=== PATIENT | female | born 1970 | race African-American/Black ===

== ENCOUNTER 2019-07-24 11:57 | Inpatient (IN) | payer OTHER ==
--- NOTE | 2019-07-24 12:13 | BHS.RME ---
Substance Use & Tx History - Substance Use History Opiates (Heroin) Substance amount: 4 bundles Frequency of use: Daily Substance route: Inhalation (ex: sniffing or snorting) Date of Last Use: 07/24/19 (4am) Cocaine (Crack) Substance amount: $100 Frequency of use: Daily Substance route: Smoking Date of Last Use: 07/24/19 (4am) Alcohol Substance amount: 2 6 packs Frequency of use: Daily Substance route: Oral Date of Last Use: 07/24/19 (4am) - Last Treatment Date of last treatment: none Physical/Psych/Mental Status - Behavior General Behavior: Decreased activity Eye Contact: Decreased - Cooperativeness Cooperativeness: Cooperative - Thinking Thought Processes: Tight, Logical, Tangential - Physical Health Problems Is patient presently having any pain?: No Does patient presently have any injuries (include location): No Does patient currently have a fever: No Is patient : No COWS - Scale Resting Pulse: 1= [place] 81-100 Sweatin= Chills/Flushing Restless Observation: 3= Extraneous Movement Pupil Size: 0= Normal to Room Light Bone or Joint Aches: 1= Mild Discomfort Runny Nose/ Eye Tearin= Nasal Congestion GI Upset > 30mins: 1= Stomach Cramp Tremor Observation: 1= Tremor [place], Not Seen Yawning Observation: 1= 1-2x During Session Anxiety or Irritability: 1=Feels Anxious/Irritable Goose Flesh Skin: 3=Piloerection COWS Score: 14 CIWA Nausea/Vomitin Muscle Tremors: 1-None Visible, but [place] Anxiety: 3 Agitation: 3 Paroxysmal Sweats: 1-Minimal Palms Moist Orientation: 1-Uncertain about Date Tacttile Disturbances: 2-Mild Itch/Numbness/Burn Auditory Disturbances: 0-None Visual Disturbances: 0-None Headache: 0-None Present CIWA-Ar Total Score: 13
--- NOTE | 2019-07-24 13:18 | HP ---
COWS - Scale Resting Pulse: 1= [place] 81-100 Sweatin= Chills/Flushing Restless Observation: 3= Extraneous Movement Pupil Size: 0= Normal to Room Light Bone or Joint Aches: 1= Mild Discomfort Runny Nose/ Eye Tearin= Nasal Congestion GI Upset > 30mins: 1= Stomach Cramp Tremor Observation: 1= Tremor [place], Not Seen Yawning Observation: 1= 1-2x During Session Anxiety or Irritability: 1=Feels Anxious/Irritable Goose Flesh Skin: 3=Piloerection COWS Score: 14 CIWA Score Nausea/Vomitin Muscle Tremors: 1-None Visible, but [place] Anxiety: 3 Agitation: 3 Paroxysmal Sweats: 1-Minimal Palms Moist Orientation: 1-Uncertain about Date Tacttile Disturbances: 2-Mild Itch/Numbness/Burn Auditory Disturbances: 0-None Visual Disturbances: 0-None Headache: 0-None Present CIWA-Ar Total Score: 13 - Admission Criteria OASAS Guidelines: Admission for Medically Managed Detox: Requires at least one of the followin. CIWA greater than 12 2. Seizures within the past 24 hours 3. Delirium tremens within the past 24 hours 4. Hallucinations within the past 24 hours 5. Acute intervention needed for co occurring medical disorder 6. Acute intervention needed for co occurring psychiatric disorder 7. Severe withdrawal that cannot be handled at a lower level of care (continued vomiting, continued diarrhea, abnormal vital signs) requiring intravenous medication and/or fluids 8. Admitting History and Physical - Admission Chief Complaint: " I want to be here because I am tired and drunk and I want to better my life." History of Present Illness: 48 year old female iwth history of alcohol dependence and heroin dependence with withdrawals and crack/cocaine use disorder. She is new to [facility]. She's had no recent admissions to detox. She had an overdose 0n 07/23/19. She blacked out 2 days ago as well. She is domiciled in an SRO but has easy accessibility to multiple drugs. Her environment for recovery is therefore very poor. PMH: HIV+ disease and last taken 1 week ago. HTN, Stroke 5 years ago. Asthma , COPD Psurg: Left food surgery, bunionectomy Heroin: 4 bundles heroin daily, [place]., started 1 year ago and last used today at 4AM. Head OD 07/23/19, brought back by street friend. Crack: $100 daily smoking, started age 16 and last used 07/24/19 at 4AM Alcohol: 2 6 pack beers daily, started age 16 and last used 07/24/19 , blacked out 2 days ago, denies seizures. She is seeking detox due to her recent episodes of black out and near overdose. She has poor recovery environment and poor support systems in place for recovery. 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 Cardiovascular: Yes: HTN Infectious Disease: Yes: HIV Psych: Yes: Depression, Schizophrenia - Past Surgical History Additional Past Surgical History: bunionectomy - Advance Directives Advance Directives: No: Living Will, Health Care Proxy, DNR - Smoking History Smoking history: Current every day smoker Have you smoked in the past 12 months: Yes Aproximately how many cigarettes per day: 20 - Alcohol/Substance Use Hx Alcohol Use: Yes (2 six packs per day) History of Substance Use: reports: Cocaine, Heroin Date of Last Use: 07/24/19 - Social History Usual Living Arrangement: Yes: Alone Do you think of yourself as: Straight/Heterosexual ADL: Independent 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 Loss EENT: reports: No Symptoms Reported Respiratory: reports: No Symptoms reported Cardiac: reports: No Symptoms Reported GI: reports: No Symptoms Reported : reports: No Symptoms Reported Musculoskeletal: reports: No Symptoms Reported Integumentary: reports: No Symptoms Reported Neuro: reports: No Symptoms reported Endocrine: reports: No Symptoms Reported Hematology: reports: No Symptoms Reported Psychiatric: reports: Judgement Intact, Orientated x3, Agitated, Anxious Other Systems: Reviewed and Negative Patient History - Patient Medical History Hx Anemia: No Hx Asthma: Yes Hx Chronic Obstructive Pulmonary Disease (COPD): Yes Hx Cancer: No Hx Cardiac Disorders: No Hx Congestive Heart Failure: No Hx Hypertension: Yes Hx Hypercholesterolemia: No Hx Pacemaker: No HX Cerebrovascular Accident: No Hx Seizures: No Hx Dementia: No Hx Diabetes: No Hx Gastrointestinal Disorders: No Hx Liver Disease: No Hx Genitourinary Disorders: No Hx Sexually Transmitted Disorders: No Hx Renal Disease (ESRD): No Hx Thyroid Disease: No Hx Human Immunodeficiency Virus (HIV): Yes (non-compliant with meds) Hx Hepatitis C: No Hx Depression: Yes (non-compliant with meds) Hx Suicide Attempt: No Hx Bipolar Disorder: No Hx Schizophrenia: Yes (non-compliant with meds) - Patient Surgical History Past Surgical History: No Hx Neurologic Surgery: No Hx Cataract Extraction: No Hx Cardiac Surgery: No Hx Lung Surgery: No Hx Breast Surgery: No Hx Breast Biopsy: No Hx Abdominal Surgery: No Hx Appendectomy: No Hx Cholecystectomy: No Hx Genitourinary Surgery: No Hx Section: No Hx Orthopedic Surgery: No Hx Hysterectomy: No Other Surgical History: bunionectormy Anesthesia Reaction: No - PPD History Previous Implant?: Yes Documented Results: Negative w/o proof Implanted On Prior [facility] Admission?: No Date: 02/01/19 ([facility]) Results: negative PPD to be Administered?: Yes - Reproductive History Patient is a Female of Child Bearing Age (11 -55 yrs old): Yes Last Menstrual Period: 07/23/19 LMP comment: just started Patient : No - Smoking Cessation Smoking history: Current every day smoker Have you smoked in the past 12 months: Yes Aproximately how many cigarettes per day: 20 Initiated information on smoking cessation: Yes 'Breaking Loose' booklet given: 07/24/19 - Substances abused Alcohol Substance route: Oral Frequency: Daily Amount used: 2 six packs beers Age of first use: 16 Crack Substance route: Smoking Frequency: Daily Amount used: $100 Age of first use: 16 Date of last use: 07/24/19 Heroin Substance route: Inhalation Frequency: Daily Amount used: 4 bundles Age of first use: 47 Date of last use: 07/24/19 Admission Physical Exam S - Physical General Appearance: Yes: Moderate Distress, Irritable, Sweating, Anxious HEENTM: Yes: EOMI, Hearing grossly Normal, Normal ENT Inspection, Normocephalic , Normal Voice, ELDER, Pharynx Normal, Tm's normal Respiratory: Yes: Chest Non-Tender, Lungs Clear, Normal Breath Sounds, No Respiratory Distress, No Accessory Muscle Use Neck: Yes: No masses,lesions,Nodules, Supple, Trachea in good position Breast: Yes: Breast Exam Deferred Cardiology: Yes: Regular Rhythm, S1, S2, Tachycardia Abdominal: Yes: Flat, Soft, Increased Bowel Sounds Back: Yes: Normal Inspection Musculoskeletal: Yes: full range of Motion, Gait Steady, Pelvis Stable Extremities: Yes: Normal Capillary Refill, Normal Inspection, Normal Range of Motion, Non-Tender 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, Fully Oriented, Alert, Motor Strength 5/5, Normal Mood/Affect, Normal Response Integumentary: Yes: Normal Color, Warm Lymphatic: Yes: Within Normal Limits - Diagnostic (1) Opioid dependence with withdrawal Current Visit: Yes Status: Acute (2) Alcohol dependence with withdrawal Current Visit: Yes Status: Acute (3) Hypertension Current Visit: Yes Status: Acute (4) HIV (human immunodeficiency virus infection) Current Visit: Yes Status: Acute (5) History of CVA (cerebrovascular accident) Current Visit: Yes Status: Acute (6) Schizoaffective disorder Current Visit: Yes Status: Acute Screened but not Admitted - Documentation of Visit Screened but not Admitted: No Breathalyzer - Breathalyzer Breathalyzer: 0 Urine Drug Screen - Test Device Lot number: [id number] Expiration date: 04/22/21 - Control Is test valid?: Yes - Results Drug screen NEGATIVE: No Urine drug screen results: GUY-Cocaine, FEN-Fentanyl, MOP-Opiates, MDMA-Ecstasy Inpatient Rehab Admission - Rehab Decision to Admit Inpatient rehab admission?: No
[2019-07-24] MEDS ORDERED: MAG HYDROX/AL HYDROX/SIMETH 30 ML UNIT-DOSE CUP PO PRN (13:33)
[2019-07-24] MEDS ORDERED: MAGNESIUM HYDROX 2400MG/30ML ORAL SUSPENSION 30 ML CUP PO PRN (13:33)
[2019-07-24] MEDS ORDERED: ACETAMINOPHEN 325 MG TABLET (FP) PO PRN ×2 (13:33)
[2019-07-24] MEDS ORDERED: NICOTINE POLACRILEX 2 MG GUM BUC PRN (13:33)
[2019-07-24] MEDS ORDERED: MAGNESIUM CITRATE 300 ML BOTTLE PO PRN (13:33)
[2019-07-24] MEDS ORDERED: diazePAM 5 MG TABLET PO PRN (13:33)
[2019-07-24] MEDS ORDERED: METHOCARBAMOL 500 MG TABLET PO PRN (13:33)
[2019-07-24] MEDS ORDERED: MENTHOL/PHENOL 1 EACH UD MM PRN (13:33)
[2019-07-24] MEDS ORDERED: cloNIDine HCL 0.1 MG TABLET PO PRN (13:33)
[2019-07-24] MEDS ORDERED: BISMUTH SUBSALICYLATE 262 MG/15 ML BTL PO PRN (13:33)
[2019-07-24 14:31] VITALS: BMI 21.6
[2019-07-24] MEDS ORDERED: METHADONE HCL 10 MG TABLET (FOR DETOX USE ONLY) PO ONE (14:40)
[2019-07-24] MEDS ORDERED: ONDANSETRON *ODT* 4 MG TABLET SL ONE (14:45)
--- NOTE | 2019-07-24 14:56 | PN ---
S Progress Note Note: EKG done T wave inversion in V1, V2 no prior EKGs to compare to Plan: repeat in am, labs pending
[2019-07-24] MEDS: diazePAM 5 MG TABLET PO SCH ×2 (15:59→22:08)
[2019-07-24] MEDS: hydrOXYzine PAMOATE 25 MG CAPSULE (FP) PO SCH ×3 (16:11→22:08)
[2019-07-24 17:14] LABS: HEMATOCRIT 41.1 % (32.4-45.2); HEMOGLOBIN 13.7 GM/dL (10.7-15.3); MCH 30.3 pg (25.7-33.7); MCHC 33.3 g/dl (32.0-36.0); MEAN PLT VOLUME 9.7 fl (7.5-11.1); PLATELET COUNT 322 K/MM3 (134-434); RBC 4.51 M/mm3 (3.60-5.2); RDW 13.3 % (11.6-15.6); WHITE BLOOD COUNT 4.1 K/mm3 (4.0-10.0)
[2019-07-24 17:35] LABS: ALBUMIN 3.6 g/dl (3.4-5.0); BILIRUBIN,TOTAL 0.6 mg/dL (0.2-1); BLOOD UREA NITROGEN 22.2 mg/dL (7-18); CALCIUM 9.1 mg/dL (8.5-10.1); CREATININE 1.1 mg/dL (0.55-1.3); POTASSIUM 4.3 mmol/L (3.5-5.1); TOT PROT 8.1 g/dl (6.4-8.2)
[2019-07-24] MEDS: IBUPROFEN 400 MG TABLET (FP) PO PRN (18:08)
[2019-07-24] MEDS: THIAMINE HCL 100 MG TABLET (FP) PO SCH (22:08)
[2019-07-24] MEDS: MELATONIN 5 MG TABLETS PO SCH (22:08)
[2019-07-25] MEDS: IBUPROFEN 400 MG TABLET (FP) PO PRN (05:44)
[2019-07-25] MEDS: diazePAM 5 MG TABLET PO SCH ×3 (06:11→21:31)
[2019-07-25] MEDS: hydrOXYzine PAMOATE 25 MG CAPSULE (FP) PO SCH (06:11)
[2019-07-25] MEDS ORDERED: METHADONE HCL 10 MG TABLET (FOR DETOX USE ONLY) ONE (09:07)
[2019-07-25] MEDS ORDERED: METHADONE HCL 5 MG TABLET (FOR DETOX USE ONLY) ONE (09:07)
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
[2019-07-25] MEDS ORDERED: hydrOXYzine PAMOATE 25 MG CAPSULE (FP) PO PRN (09:51)
[2019-07-25] MEDS ORDERED: ONDANSETRON *ODT* 4 MG TABLET SL PRN (09:53)
[2019-07-25] MEDS ORDERED: METHADONE (DETOX) 20 MG, METHADONE (DETOX) 5 MG PO ONE (10:00)
--- NOTE | 2019-07-25 10:35 | EKG ---
Test Reason : Blood Pressure : / mmHG Vent. Rate : 073 BPM Atrial Rate : 073 BPM P-R Int : 168 ms QRS Dur : 086 ms QT Int : 394 ms P-R-T Axes : 002 058 040 degrees QTc Int : 434 ms NORMAL SINUS RHYTHM NORMAL ECG NO PREVIOUS ECGS AVAILABLE Confirmed by Kb Gastelum MD ([id number]) on 07/25/2019 10:35:20 AM Referred By: Confirmed By:Kb Gastelum MD
--- NOTE | 2019-07-25 10:35 | EKG ---
Test Reason : Blood Pressure : / mmHG Vent. Rate : 072 BPM Atrial Rate : 072 BPM P-R Int : 198 ms QRS Dur : 086 ms QT Int : 388 ms P-R-T Axes : 068 060 045 degrees QTc Int : 424 ms NORMAL SINUS RHYTHM NORMAL ECG WHEN COMPARED WITH ECG OF 24-JUL-2019 14:47, NO SIGNIFICANT CHANGE WAS FOUND Confirmed by Kb Gastelum MD ([id number]) on 07/25/2019 10:35:11 AM Referred By: Tim STUBBS Confirmed By:Kb Gastelum MD
[2019-07-25] MEDS: NICOTINE 7 MG/24 HOURS TOPICAL PATCH TD SCH (10:38)
[2019-07-25] MEDS: PRENATAL VITAMINS W/ FOLIC ACID TABLET (FP) PO SCH (10:38)
--- NOTE | 2019-07-25 13:36 | PN ---
[facility] CIWA - CIWA Score Nausea/Vomitin-No Nausea/No Vomiting Muscle Tremors: 3 Anxiety: 3 Agitation: 3 Paroxysmal Sweats: 2 Orientation: 0-Oriented Tacttile Disturbances: 0-None Auditory Disturbances: 0-None Visual Disturbances: 0-None Headache: 0-None Present CIWA-Ar Total Score: 11 S COWS - Scale Resting Pulse: 0= [place] 80 or Below Sweatin= Chills/Flushing Restless Observation: 1= Difficult to Sit Still Pupil Size: 0= Normal to Room Light Bone or Joint Aches: 1= Mild Discomfort Runny Nose/ Eye Tearin= Nasal Congestion GI Upset > 30mins: 0= None Tremor Observation of Outstretched Hands: 1= Tremor [place], Not Seen Yawning Observation: 1= 1-2x During Session Anxiety or Irritability: 2=Irritable/Anxious Goose Flesh Skin: 0=Smooth Skin COWS Score: 8 S Progress Note (SOAP) Subjective: chills sweats shakes restless body aches Objective: 07/25/19 13:36 Vital Signs Temperature 97.6 F 07/25/19 08:55 Pulse Rate 71 07/25/19 08:55 Respiratory Rate 19 07/25/19 08:55 Blood Pressure 105/69 07/25/19 08:55 O2 Sat by Pulse Oximetry (%) Laboratory Tests 07/24/19 07/24/19 07/24/19 13:07 13:45 13:45 WBC 4.1 RBC 4.51 Hgb 13.7 Hct 41.1 MCV 91.0 MCH 30.3 MCHC 33.3 RDW 13.3 Plt Count 322 MPV 9.7 Sodium 137 Potassium 4.3 Chloride 105 Carbon Dioxide 29 Anion Gap 4 L BUN 22.2 H Creatinine 1.1 Est GFR (CKD-EPI)AfAm 68.27 Est GFR (CKD-EPI)NonAf 58.91 Random Glucose 101 Calcium 9.1 Total Bilirubin 0.6 AST 20 ALT 19 Alkaline Phosphatase 57 Total Protein 8.1 Albumin 3.6 POC Urine HCG, Qual Negative RPR Titer 07/24/19 13:45 WBC RBC Hgb Hct MCV MCH MCHC RDW Plt Count MPV Sodium Potassium Chloride Carbon Dioxide Anion Gap BUN Creatinine Est GFR (CKD-EPI)AfAm Est GFR (CKD-EPI)NonAf Random Glucose Calcium Total Bilirubin AST ALT Alkaline Phosphatase Total Protein Albumin POC Urine HCG, Qual RPR Titer Nonreactive aaox3 ambulating no acute distress Assessment: 07/25/19 13:36 withdrawals Plan: continue detox increase fluids ensure bid
[2019-07-25] MEDS: THIAMINE HCL 100 MG TABLET (FP) PO SCH (21:31)
[2019-07-25] MEDS: ARIPiprazole 5 MG TABLET PO SCH (21:31)
[2019-07-25] MEDS ORDERED: SUVOREXANT 10 MG TABLET PO PRN (22:00)
[2019-07-25] MEDS: MELATONIN 5 MG TABLETS PO SCH (22:44)
[2019-07-26] MEDS: diazePAM 5 MG TABLET PO SCH ×2 (06:19→17:19)
[2019-07-26] MEDS ORDERED: METHADONE HCL 10 MG TABLET (FOR DETOX USE ONLY) PO ONE (10:00)
[2019-07-26] MEDS: PRENATAL VITAMINS W/ FOLIC ACID TABLET (FP) PO SCH (10:44)
[2019-07-26] MEDS: NICOTINE 7 MG/24 HOURS TOPICAL PATCH TD SCH (10:45)
--- NOTE | 2019-07-26 12:48 | PN ---
[facility] CIWA - CIWA Score Nausea/Vomitin-No Nausea/No Vomiting Muscle Tremors: 3 Anxiety: 2 Agitation: 2 Paroxysmal Sweats: 2 Orientation: 0-Oriented Tacttile Disturbances: 0-None Auditory Disturbances: 0-None Visual Disturbances: 0-None Headache: 0-None Present CIWA-Ar Total Score: 9 BHS COWS - Scale Resting Pulse: 1= [place] 81-100 Sweatin= Chills/Flushing Restless Observation: 1= Difficult to Sit Still Pupil Size: 0= Normal to Room Light Bone or Joint Aches: 1= Mild Discomfort Runny Nose/ Eye Tearin= None GI Upset > 30mins: 0= None Tremor Observation of Outstretched Hands: 1= Tremor [place], Not Seen Yawning Observation: 1= 1-2x During Session Anxiety or Irritability: 1=Feels Anxious/Irritable Goose Flesh Skin: 0=Smooth Skin COWS Score: 7 S Progress Note (SOAP) Subjective: restless sweats interrupted sleep Objective: 07/26/19 12:47 Vital Signs Temperature 99 F 07/26/19 09:12 Pulse Rate 94 H 07/26/19 09:12 Respiratory Rate 20 07/26/19 09:12 Blood Pressure 119/69 07/26/19 09:12 O2 Sat by Pulse Oximetry (%) Laboratory Tests 07/24/19 07/24/19 07/24/19 13:07 13:45 13:45 WBC 4.1 RBC 4.51 Hgb 13.7 Hct 41.1 MCV 91.0 MCH 30.3 MCHC 33.3 RDW 13.3 Plt Count 322 MPV 9.7 Sodium 137 Potassium 4.3 Chloride 105 Carbon Dioxide 29 Anion Gap 4 L BUN 22.2 H Creatinine 1.1 Est GFR (CKD-EPI)AfAm 68.27 Est GFR (CKD-EPI)NonAf 58.91 Random Glucose 101 Calcium 9.1 Total Bilirubin 0.6 AST 20 ALT 19 Alkaline Phosphatase 57 Total Protein 8.1 Albumin 3.6 POC Urine HCG, Qual Negative RPR Titer 07/24/19 13:45 WBC RBC Hgb Hct MCV MCH MCHC RDW Plt Count MPV Sodium Potassium Chloride Carbon Dioxide Anion Gap BUN Creatinine Est GFR (CKD-EPI)AfAm Est GFR (CKD-EPI)NonAf Random Glucose Calcium Total Bilirubin AST ALT Alkaline Phosphatase Total Protein Albumin POC Urine HCG, Qual RPR Titer Nonreactive aaox3 ambulating no acute distress Assessment: 07/26/19 12:47 withdrawal sx Plan: continue detox increase fluids
[2019-07-26] MEDS: THIAMINE HCL 100 MG TABLET (FP) PO SCH (21:49)
[2019-07-26] MEDS: ARIPiprazole 5 MG TABLET PO SCH (21:49)
[2019-07-26] MEDS: MELATONIN 5 MG TABLETS PO SCH (21:50)
[2019-07-26] MEDS: IBUPROFEN 400 MG TABLET (FP) PO PRN (21:53)
[2019-07-27] MEDS ORDERED: diazePAM 5 MG TABLET PO ONE (06:00)
[2019-07-27] MEDS ORDERED: METHADONE HCL 5 MG TABLET (FOR DETOX USE ONLY) ONE (09:15)
[2019-07-27] MEDS ORDERED: METHADONE HCL 10 MG TABLET (FOR DETOX USE ONLY) ONE (09:15)
[2019-07-27] MEDS ORDERED: METHADONE (DETOX) 10 MG, METHADONE (DETOX) 5 MG PO ONE (10:00)
[2019-07-27] MEDS: PRENATAL VITAMINS W/ FOLIC ACID TABLET (FP) PO SCH (10:34)
[2019-07-27] MEDS: NICOTINE 7 MG/24 HOURS TOPICAL PATCH TD SCH (10:34)
[2019-07-27] MEDS: IBUPROFEN 400 MG TABLET (FP) PO PRN ×2 (10:37→22:06)
--- NOTE | 2019-07-27 12:13 | PN ---
[facility] CIWA - CIWA Score Nausea/Vomitin-No Nausea/No Vomiting Muscle Tremors: 2 Anxiety: 1-Mildly Anxious Agitation: 1-Slight > Activity Paroxysmal Sweats: 1-Minimal Palms Moist Orientation: 0-Oriented Tacttile Disturbances: 0-None Auditory Disturbances: 0-None Visual Disturbances: 0-None Headache: 0-None Present CIWA-Ar Total Score: 5 BHS COWS - Scale Resting Pulse: 2= [place] 101-120 Sweatin= Chills/Flushing Restless Observation: 1= Difficult to Sit Still Pupil Size: 0= Normal to Room Light Bone or Joint Aches: 0= None Runny Nose/ Eye Tearin= Nasal Congestion GI Upset > 30mins: 0= None Tremor Observation of Outstretched Hands: 1= Tremor [place], Not Seen Yawning Observation: 0= None Anxiety or Irritability: 1=Feels Anxious/Irritable Goose Flesh Skin: 0=Smooth Skin COWS Score: 7 [facility] Progress Note (SOAP) Subjective: feeling better agitation Objective: 07/27/19 12:32 Vital Signs Temperature 98.4 F 07/27/19 08:54 Pulse Rate 106 H 07/27/19 08:54 Respiratory Rate 20 07/27/19 08:54 Blood Pressure 106/88 07/27/19 08:54 O2 Sat by Pulse Oximetry (%) aaox3 ambulating no acute distress Assessment: 07/27/19 12:33 mild withdrawals Plan: continue detox increase fluids
[2019-07-27] MEDS: ARIPiprazole 5 MG TABLET PO SCH (22:02)
[2019-07-27] MEDS: THIAMINE HCL 100 MG TABLET (FP) PO SCH (22:02)
[2019-07-27] MEDS: MELATONIN 5 MG TABLETS PO SCH (22:03)
[2019-07-28] MEDS ORDERED: METHADONE HCL 10 MG TABLET (FOR DETOX USE ONLY) PO ONE (10:00)
[2019-07-28] MEDS: PRENATAL VITAMINS W/ FOLIC ACID TABLET (FP) PO SCH (10:35)
[2019-07-28] MEDS: NICOTINE 7 MG/24 HOURS TOPICAL PATCH TD SCH (10:36)
--- NOTE | 2019-07-28 11:33 | PN ---
[facility] CIWA - CIWA Score Nausea/Vomitin-No Nausea/No Vomiting Muscle Tremors: 1-None Visible, but [place] Anxiety: 1-Mildly Anxious Agitation: 1-Slight > Activity Paroxysmal Sweats: No Perspiration Orientation: 0-Oriented Tacttile Disturbances: 0-None Auditory Disturbances: 0-None Visual Disturbances: 0-None Headache: 0-None Present CIWA-Ar Total Score: 3 S COWS - Scale Resting Pulse: 1= [place] 81-100 Sweatin= No chills or Flushing Restless Observation: 0= Sits Still Pupil Size: 0= Normal to Room Light Bone or Joint Aches: 1= Mild Discomfort Runny Nose/ Eye Tearin= None GI Upset > 30mins: 0= None Tremor Observation of Outstretched Hands: 1= Tremor [place], Not Seen Yawning Observation: 0= None Anxiety or Irritability: 1=Feels Anxious/Irritable Goose Flesh Skin: 0=Smooth Skin COWS Score: 4 [facility] Progress Note (SOAP) Subjective: feeling better little anxiety Objective: 07/28/19 12:12 Vital Signs Temperature 97.6 F 07/28/19 10:00 Pulse Rate 93 H 07/28/19 10:00 Respiratory Rate 18 07/28/19 10:00 Blood Pressure 115/68 07/28/19 10:00 O2 Sat by Pulse Oximetry (%) aaox3 ambulating no acute distress Assessment: 07/28/19 12:13 mild withdrawals Plan: continue detox d/c in am
[2019-07-28] MEDS: ARIPiprazole 5 MG TABLET PO SCH (21:26)
[2019-07-28] MEDS: THIAMINE HCL 100 MG TABLET (FP) PO SCH (21:26)
[2019-07-28] MEDS: MELATONIN 5 MG TABLETS PO SCH (21:26)
[2019-07-29] MEDS ORDERED: METHADONE HCL 5 MG TABLET (FOR DETOX USE ONLY) PO ONE (06:00)
[2019-07-29 06:51] VITALS: TEMP 98.2
--- NOTE | 2019-07-29 08:27 | PN ---
BHS COWS - Scale Resting Pulse: 0= [place] 80 or Below Sweatin= No chills or Flushing Restless Observation: 0= Sits Still Pupil Size: 0= Normal to Room Light Bone or Joint Aches: 0= None Runny Nose/ Eye Tearin= None GI Upset > 30mins: 0= None Tremor Observation of Outstretched Hands: 0= None Yawning Observation: 0= None Anxiety or Irritability: 1=Feels Anxious/Irritable Goose Flesh Skin: 0=Smooth Skin COWS Score: 1 BHS Progress Note (SOAP) Subjective: alert,anxious,no complaint Objective: 07/29/19 08:26 Vital Signs Temperature 98.2 F 07/29/19 05:22 Pulse Rate 70 07/29/19 05:22 Respiratory Rate 16 07/29/19 05:22 Blood Pressure 109/61 07/29/19 05:22 O2 Sat by Pulse Oximetry (%) Assessment: 07/29/19 08:26 detox completed,no withdrawal symptom Plan: discharge today,follow up with [facility] as arrangement
--- NOTE | 2019-07-29 08:32 | DS ---
[facility] Detox Discharge Summary Admission Date: 07/24/19 Discharge Date: 07/29/19 - History Additional Comments: alert,oriented x 3 ambulation on the unit no abdominal pain no swelling of extremities stable for discharge to [facility] total time of discharge 35 mins Pertinent Past History: hypertension oldcva hiv - Physical Exam Results Vital Signs: Vital Signs Temperature 98.2 F 07/29/19 05:22 Pulse Rate 70 07/29/19 05:22 Respiratory Rate 16 07/29/19 05:22 Blood Pressure 109/61 07/29/19 05:22 O2 Sat by Pulse Oximetry (%) Pertinent Admission Physical Exam Findings: withdrawal signs and symptom Vital Signs Temperature 98.2 F 07/29/19 05:22 Pulse Rate 70 07/29/19 05:22 Respiratory Rate 16 07/29/19 05:22 Blood Pressure 109/61 07/29/19 05:22 O2 Sat by Pulse Oximetry (%) Laboratory Last Values WBC 4.1 K/mm3 (4.0-10.0) 07/24/19 13:45 RBC 4.51 M/mm3 (3.60-5.2) 07/24/19 13:45 Hgb 13.7 GM/dL (10.7-15.3) 07/24/19 13:45 Hct 41.1 % (32.4-45.2) 07/24/19 13:45 MCV 91.0 fl (80-96) 07/24/19 13:45 MCH 30.3 pg (25.7-33.7) 07/24/19 13:45 MCHC 33.3 g/dl (32.0-36.0) 07/24/19 13:45 RDW 13.3 % (11.6-15.6) 07/24/19 13:45 Plt Count 322 K/MM3 (134-434) 07/24/19 13:45 MPV 9.7 fl (7.5-11.1) 07/24/19 13:45 Sodium 137 mmol/L (136-145) 07/24/19 13:45 Potassium 4.3 mmol/L (3.5-5.1) 07/24/19 13:45 Chloride 105 mmol/L (98-107) 07/24/19 13:45 Carbon Dioxide 29 mmol/L (21-32) 07/24/19 13:45 Anion Gap 4 MMOL/L (8-16) L 07/24/19 13:45 BUN 22.2 mg/dL (7-18) H 07/24/19 13:45 Creatinine 1.1 mg/dL (0.55-1.3) 07/24/19 13:45 Est GFR (CKD-EPI)AfAm 68.27 07/24/19 13:45 Est GFR (CKD-EPI)NonAf 58.91 07/24/19 13:45 Random Glucose 101 mg/dL (74-106) 07/24/19 13:45 Calcium 9.1 mg/dL (8.5-10.1) 07/24/19 13:45 Total Bilirubin 0.6 mg/dL (0.2-1) 07/24/19 13:45 AST 20 U/L (15-37) 07/24/19 13:45 ALT 19 U/L (13-61) 07/24/19 13:45 Alkaline Phosphatase 57 U/L (45-117) 07/24/19 13:45 Total Protein 8.1 g/dl (6.4-8.2) 07/24/19 13:45 Albumin 3.6 g/dl (3.4-5.0) 07/24/19 13:45 POC Urine HCG, Qual Negative 07/24/19 13:07 RPR Titer Nonreactive (NONREACTIVE) 07/24/19 13:45 - Treatment Hospital Course: Detox Protocol Followed, Detoxed Safely, Responded well, Discharged Condition Good, Rehab Referral Accepted Patient has Accepted a Rehab Referral to: [facility] - Medication Discharge Medications: Ambulatory Orders Aripiprazole [Abilify] 5 mg PO HS 07/24/19 Darunavir/Cob/Emtri/Tenof Alaf [Symtuza [id number] mg Tab] 1 each PO DAILY 07/24/19 Fluticasone/Salmeterol [Advair 250-50 Diskus] 1 each IH DAILY 07/24/19 Ibuprofen [Motrin -] 800 mg PO PRN PRN 07/24/19 Zolpidem Tartrate [Ambien] 10 mg PO HS 07/24/19 - Diagnosis (1) Alcohol dependence with withdrawal Current Visit: Yes Status: Acute (2) Cocaine dependence Current Visit: Yes Status: Acute (3) History of CVA (cerebrovascular accident) Current Visit: Yes Status: Acute (4) Opioid dependence with withdrawal Current Visit: Yes Status: Acute (5) Bronchial asthma Current Visit: Yes Status: Chronic (6) HIV (human immunodeficiency virus infection) Current Visit: Yes Status: Chronic (7) Hypertension Current Visit: Yes Status: Chronic (8) Nicotine dependence Current Visit: Yes Status: Chronic (9) Schizoaffective disorder Current Visit: Yes Status: Chronic - AMA Did Patient Leave Against Medical Advice: No
[2019-07-29] MEDS ORDERED: BENZOCAINE 20 % GEL TUBE MM PRN (09:53)
[2019-07-29] MEDS: NICOTINE 7 MG/24 HOURS TOPICAL PATCH TD SCH (10:10)
[2019-07-29] MEDS: PRENATAL VITAMINS W/ FOLIC ACID TABLET (FP) PO SCH (10:10)
[2019-07-29 10:39] VITALS: BP 105/75; PULSE 84
== END 2019-07-29 12:38 | disposition other institution (70) | DRG 773 ==
LOC: YASAS 11:57 → Y6N 14:32
PROVIDERS: ADMIT Allergy & Immunology; ATTEND Allergy & Immunology
PROC: HZ2ZZZZ Detoxification Services for Substance Abuse Treatment (ICD-10-PCS; principal; 2019-07-24)
DX: F10.230 Alcohol dependence with withdrawal, uncomplicated (principal); F11.23 Opioid dependence with withdrawal; F14.20 Cocaine dependence, uncomplicated; F17.210 Nicotine dependence, cigarettes, uncomplicated; F25.9 Schizoaffective disorder, unspecified; F19.282 Other psychoactive substance dependence with psychoactive substance-induced sleep disorder; F32.9 Major depressive disorder, single episode, unspecified; Z21 Asymptomatic human immunodeficiency virus [HIV] infection status; I10 Essential (primary) hypertension; J44.9 Chronic obstructive pulmonary disease, unspecified; J45.998 Other asthma; Z91.410 Personal history of adult physical and sexual abuse; Z91.14 Patient's other noncompliance with medication regimen
CPT/HCPCS: 36415; 80053; 81025; 85027; 86593; 93005; 93010; Q0162

== ENCOUNTER 2019-07-29 11:32 | Inpatient (IN) | payer OTHER ==
--- NOTE | 2019-07-29 14:02 | HP ---
[facility] Rehab Assess/Revision - Admission History Admitted to Rehab from: [facility] Date of Admission to Rehab: 07/29/2019 - Vital signs Vital Signs: Vital Signs Period Temp Pulse Resp BP Sys/Miles Pulse Ox Last 24 Hr 98.2 F 81 18 127/76 - Findings Detox History & Physical reviewed: Yes Concur with findings: Yes Comments/Additional Findings: for rehab as protocol Inpatient Rehab Admission - Rehab Decision to Admit Inpatient rehab admission?: Yes - Initial Determination Are CD services needed?: Yes Free of communicable disease: Yes Not in need of hospitalization: Yes - Rehab Admission Criteria Previous failed treatment: Yes Poor recovery environment: Yes Comorbidities: Yes Lacks judgement: No Patient is meeting Inpatient Rehab admission criteria:: Yes
[2019-07-29] MEDS ORDERED: P-EPHED 60MG/TRIPROLIDI 2.5MG TABLET PO PRN (14:03)
[2019-07-29] MEDS ORDERED: MAGNESIUM HYDROX 2400MG/30ML ORAL SUSPENSION 30 ML CUP PO PRN (14:03)
[2019-07-29] MEDS ORDERED: IBUPROFEN 400 MG TABLET (FP) PO PRN (14:03)
[2019-07-29] MEDS ORDERED: MAGNESIUM CITRATE 300 ML BOTTLE PO PRN (14:03)
[2019-07-29] MEDS ORDERED: MAG HYDROX/AL HYDROX/SIMETH 30 ML UNIT-DOSE CUP PO PRN (14:03)
[2019-07-29] MEDS ORDERED: NICOTINE POLACRILEX 2 MG GUM BUC PRN (14:03)
[2019-07-29] MEDS ORDERED: guaiFENesin 200 MG/10 ML 10 ML UNIT-DOSE CUPS PO PRN (14:03)
[2019-07-29] MEDS ORDERED: ACETAMINOPHEN 325 MG TABLET (FP) PO PRN (14:03)
[2019-07-29] MEDS ORDERED: MENTHOL/PHENOL 1 EACH UD MM PRN (14:03)
[2019-07-29] MEDS ORDERED: BENZOCAINE 20 % GEL TUBE MM PRN (14:06)
[2019-07-29] MEDS ORDERED: IBUPROFEN 600 MG TABLET (FP) PO PRN (15:04)
[2019-07-29] MEDS: NICOTINE 7 MG/24 HOURS TOPICAL PATCH TD SCH (16:01)
[2019-07-29] MEDS: hydrOXYzine PAMOATE 25 MG CAPSULE (FP) PO SCH ×2 (18:32→21:24)
[2019-07-29] MEDS: MELATONIN 5 MG TABLETS PO SCH (21:24)
[2019-07-29] MEDS: THIAMINE HCL 100 MG TABLET (FP) PO SCH (21:24)
[2019-07-29] MEDS ORDERED: PT OWN MED DRAWER 7, Y5N ONE (23:48)
[2019-07-30] MEDS: LOPERAMIDE HCL 2 MG CAPSULE PO PRN ×2 (07:05→15:38)
[2019-07-30] MEDS: hydrOXYzine PAMOATE 25 MG CAPSULE (FP) PO SCH ×5 (07:05→21:48)
[2019-07-30] MEDS ORDERED: PATIENT'S OWN MEDICATION (NON-FORMULARY) (Darunavir/Cob/Emtri/Tenof Alaf 1 EACH) PO SCH (10:00)
[2019-07-30] MEDS: PRENATAL VITAMINS W/ FOLIC ACID TABLET (FP) PO SCH (10:11)
[2019-07-30] MEDS: NICOTINE 7 MG/24 HOURS TOPICAL PATCH TD SCH (10:11)
[2019-07-30] MEDS ORDERED: PT OWN MED DRAWER 7, Y5N ONE (10:12)
[2019-07-30] MEDS: MELATONIN 5 MG TABLETS PO SCH (21:46)
[2019-07-30] MEDS: THIAMINE HCL 100 MG TABLET (FP) PO SCH (21:46)
[2019-07-31] MEDS: hydrOXYzine PAMOATE 25 MG CAPSULE (FP) PO SCH ×2 (06:38→10:29)
[2019-07-31] MEDS: PRENATAL VITAMINS W/ FOLIC ACID TABLET (FP) PO SCH (10:27)
[2019-07-31] MEDS: NICOTINE 7 MG/24 HOURS TOPICAL PATCH TD SCH (10:28)
[2019-07-31 11:19] VITALS: BP 117/83; PULSE 87; TEMP 98.6
[2019-07-31] MEDS ORDERED: PT OWN MED DRAWER 7, Y5N ONE (12:23)
--- NOTE | 2019-07-31 12:25 | DS ---
[facility] Rehab Discharge Summary - [facility] Rehab Discharge Summary Admission Date: 07/29/19 Discharge Date: 07/31/19 - History Present History: Alcohol dependence, Cocaine dependence, Opioid dependence Pertinent Past History: Asthma HIV+( HTN(no meds) s/p CVA(5 yrs ago) - Discharge Physical Exam Vital Signs: Vital Signs Temperature 98.6 F 07/31/19 11:18 Pulse Rate 87 07/31/19 11:18 Respiratory Rate 18 07/31/19 11:18 Blood Pressure 117/83 07/31/19 11:18 O2 Sat by Pulse Oximetry (%) Alert o x 3,denies s/h/i nad oob ambulating withsteady gait cardiac;s1 s2,rrr lungs:cta,reagan. abdomen:soft,+bs,nt,nd extremities/skin:no edema;skin dry and intact. Pertinent Admission Physical Exam Findings: Stable and unchanged from detox - Treatment Discharge Condition: Discharge condition good Hospital Course: Pt is a 48 y/o female with a hx of CELINA admitted to rehab on 07/29/19 from detox and requested early discharge today to follow up with her primary care doctor. Pt met with counselling supervisor [employer] Ms Nery Shaw and has been referred to aftercare and pt accepted referral for follow up care. Pt reports she has primary care with [facility] in the [place]. - Medication Discharge Medications: Ambulatory Orders Aripiprazole [Abilify] 5 mg PO HS 07/24/19 Darunavir/Cob/Emtri/Tenof Alaf [Symtuza [id number] mg Tab] 1 each PO DAILY 07/24/19 Fluticasone/Salmeterol [Advair 250-50 Diskus] 1 each IH DAILY 07/24/19 Ibuprofen [Motrin -] 800 mg PO PRN PRN 07/24/19 Zolpidem Tartrate [Ambien] 10 mg PO HS 07/24/19 - Medication-Assisted Treatment (MAT) Medication-Assisted Treatment (MAT): No - Discharge Instructions Diet, activity, other medical instructions: Diet:Regular Activity: oob ad mikayla Other medical instructions:follow up with [facility] aftercare as recommended to [facility]. Follow up with your primary care provider at [facility] for medical management within 1 week after discharge. - Diagnosis (1) Opioid use disorder Current Visit: Yes Status: Chronic (2) Cocaine dependence Current Visit: Yes Status: Chronic Qualifiers: Substance use status: uncomplicated Qualified Code(s): F14.20 - Cocaine dependence, uncomplicated (3) Alcohol use disorder Current Visit: Yes Status: Chronic (4) History of CVA (cerebrovascular accident) Current Visit: Yes Status: Resolved (5) Bronchial asthma Current Visit: Yes Status: Chronic Qualifiers: Asthma severity: unspecified severity Asthma persistence: unspecified Asthma complication type: unspecified Qualified Code(s): J45.909 - Unspecified asthma, uncomplicated (6) HIV (human immunodeficiency virus infection) Current Visit: Yes Status: Chronic Qualifiers: HIV symptom status: unspecified Qualified Code(s): B20 - Human immunodeficiency virus [HIV] disease (7) Hypertension Current Visit: Yes Status: Chronic Qualifiers: Hypertension type: unspecified Qualified Code(s): I10 - Essential (primary) hypertension (8) Nicotine dependence Current Visit: Yes Status: Chronic Qualifiers: Nicotine product type: cigarettes Substance use status: uncomplicated Qualified Code(s): F17.210 - Nicotine dependence, cigarettes, uncomplicated - Follow-up Referral Minutes to complete discharge: 25 - AMA Did Patient Leave Against Medical Advice: No
== END 2019-07-31 12:52 | disposition home or self-care (01) | DRG 772 ==
LOC: YASAS 11:32 → Y3E 11:33
PROVIDERS: ADMIT Allergy & Immunology; ATTEND Allergy & Immunology
PROC: HZ42ZZZ Group Counseling for Substance Abuse Treatment, Cognitive-Behavioral (ICD-10-PCS; principal; 2019-07-29)
DX: F10.20 Alcohol dependence, uncomplicated (principal); F11.20 Opioid dependence, uncomplicated; F14.20 Cocaine dependence, uncomplicated; F17.210 Nicotine dependence, cigarettes, uncomplicated; Z21 Asymptomatic human immunodeficiency virus [HIV] infection status; I10 Essential (primary) hypertension; J45.909 Unspecified asthma, uncomplicated; Z86.73 Personal history of transient ischemic attack (TIA), and cerebral infarction without residual deficits